=== PATIENT | female | born 1930 | race Caucasian/White ===

== ENCOUNTER 2017-12-28 15:12 | Emergency (ER) | payer MEDICARE, BC ==
--- NOTE | 2017-12-28 16:13 | EDM.PDOC ---
ED HPI GENERAL MEDICAL PROBLEM - General Time Seen by Provider: 12/28/17 15:45 Source of Information: Reports: Patient History Limitations: Reports: No Limitations - History of Present Illness INITIAL COMMENTS - FREE TEXT/NARRATIVE: According to patient she claims she woke today morning and had precardial chest pain. Pain was dull and was throbbing type. Lasted for about 1 hr before it resolved. No shortness of breath, sweating. nausea or vomiting. Presently she does not have chest pain, but has been feeling tired and exhausted all day. Pt also claims that she does feel like she has been missing beat in her heart. no thumping sensation in the heart. no back pain or epigastric pain. No other complaints. Onset: Today Onset Date: 12/28/17 Onset Time: 06:00 Location: Reports: Chest Quality: Reports: Ache Severity: Mild Improves with: Reports: None Worsens with: Reports: None Associated Symptoms: Reports: Chest Pain, Weakness. Denies: Confusion, Cough, Diaphoresis, Fever/Chills, Headaches, Nausea/Vomiting, Rash, Seizure, Shortness of Breath, Syncope - Related Data Allergies Allergy/AdvReac Type Severity Reaction Status Date / Time No Known Allergies Allergy Verified 04/17/14 13:04 Home Meds: Home Meds Hydrochlorothiazide 25 mg PO DAILY 04/15/14 [History] Aspirin 81 mg DAILY 12/28/17 [History] Levothyroxine Sodium [Levo-T] 75 mcg PO DAILY 12/28/17 [History] Past Medical History HEENT History: Reports: Hard of Hearing, Impaired Vision Cardiovascular History: Reports: Hypertension Respiratory History: Reports: None Gastrointestinal History: Reports: Chronic Constipation, GERD Genitourinary History: Reports: None 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 OILER History: Reports: Fibroids, , Other (See Below) Other SHOVEL OILER History: fibroids removed Musculoskeletal History: Reports: None, Back Pain, Chronic Neurological History: Reports: Vertigo, Other (See Below) Other Neuro History: some headaches Psychiatric History: Reports: None Endocrine/Metabolic History: Reports: Hypothyroidism Hematologic History: Reports: None Immunologic History: Reports: None Oncologic (Cancer) History: Reports: None Dermatologic History: Reports: None - Past Surgical History HEENT Surgical History: Reports: Cataract Surgery, Tonsillectomy ED ROS GENERAL - Review of Systems Review Of Systems: See Below Constitutional: Reports: Weakness, Fatigue. Denies: Fever, Chills, Night Sweats , Diaphoresis HEENT: Denies: Rhinitis, Throat Pain, Throat Swelling, Vision Change Respiratory: Denies: Shortness of Breath, Wheezing, Cough, Sputum Cardiovascular: Reports: Chest Pain. Denies: Lightheadedness Endocrine: Reports: Fatigue GI/Abdominal: Denies: Abdominal Pain, Constipation, Diarrhea, Distension, Nausea , Vomiting : Denies: Dysuria, Flank Pain Musculoskeletal: Denies: Joint Pain, Joint Swelling Skin: Denies: Jaundice, Pruritis, Rash Neurological: Denies: Confusion, Dizziness, Headache, Numbness Psychiatric: Denies: Agitation, Anxiety, Confusion, Cravings ED EXAM, GENERAL - Physical Exam Exam: See Below Exam Limited By: No Limitations General Appearance: Alert, WD/WN, No Apparent Distress Eye Exam: Bilateral Eye: EOMI, PERRL Ears: Normal External Exam, Normal Canal, Hearing Grossly Normal, Normal TMs Ear Exam: Bilateral Ear: Auricle Normal, Canal Normal, TM normal Nose: Normal Inspection, Normal Mucosa, No Blood Throat/Mouth: Normal Inspection, Normal Lips, Normal Teeth, Normal Gums, Normal Oropharynx, Normal Voice, No Airway Compromise Head: Atraumatic, Normocephalic Neck: Normal Inspection, Supple, Non-Tender, Full Range of Motion Respiratory/Chest: No Respiratory Distress, Lungs Clear, Normal Breath Sounds, No Accessory Muscle Use, Chest Non-Tender Cardiovascular: Normal Peripheral Pulses, Regular Rate, Rhythm, No Edema, No Gallop, No JVD, No Murmur, No Rub GI/Abdominal: Normal Bowel Sounds, Soft, Non-Tender, No Organomegaly, No Distention, No Abnormal Bruit, No Mass Back Exam: Normal Inspection, Full Range of Motion, NT Extremities: Normal Inspection, Normal Range of Motion, Non-Tender, Normal Capillary Refill, No Pedal Edema Neurological: Alert, Oriented, CN II-XII Intact, Normal Cognition, Normal Gait, Normal Reflexes, No Motor/Sensory Deficits Psychiatric: Normal Affect, Normal Mood Skin Exam: Warm, Intact EKG INTERPRETATION EKG Date: 12/28/17 Rhythm: NSR Rate (Beats/Min): 74 [place]: LAD-Left [place] Deviation P-Wave: Present QRS: LBBB ST-T: Normal QT: Normal EKG Interpretation Comments: New onset LBBB comparison made with her previous EKG from 04/09/18 Course - Vital Signs Text/Narrative:: Pt is a 87 year female with chest pain about 8 hrs ago with fatigue. Presently is is pain free. No pain with exertion or activity. Her EKG shows new onset LBBB. Will get cardiac workup. Pt's CBC is normal. Her CMP shows mild hypokalemia with potassium of 3.1. UA is negative. Troponin is within normal limits.TSH is normal. I did contact [facility] as she has LBBB on EKG which was not seen on her previous EKG form 04/09/14. Discussed patient with Dr. Osorio, contact center specialist on erick. As pt is asymptomatic,with negative troponins , he did reassured that LBBB might be age related nonspecific change. HE did recommend Cardiology outpatient followup. Pt was notified. Will schedule cardiology appointment at [facility]. Also I have advised to eat 1 banana daily for next 10 days to replenish potassium. repeat potassium in 2 wks. Followup with primary care provider in 2 wks. Last Recorded V/S: Last Vital Signs Temp 99 F 12/28/17 16:21 Pulse 76 12/28/17 16:21 Resp 16 12/28/17 16:21 BP 146/68 H 12/28/17 16:21 Pulse Ox 95 12/28/17 16:21 - Orders/Labs/Meds Orders: Active Orders 24 hr Category Date Time Status EKG Documentation Completion [RC] ASDIRECTED Care 12/28/17 16:04 Ordered Chest 1V Frontal [CR] Stat Exams 12/28/17 16:15 Taken Labs: Laboratory Tests 12/28/17 12/28/17 12/28/17 Range/Units 16:20 16:20 16:20 WBC 4.4 (4.0-11.0) K/uL RBC 4.48 (3.80-5.80) M/uL Hgb 13.8 (11.5-16.5) g/dL Hct 40.9 (37.0-47.0) % MCV 91 (76-96) fL MCH 30.8 (27.0-32.0) pg MCHC 33.7 (31.0-35.0) g/dL RDW 14.8 (11.0-16.0) % Plt Count 220 (150-500) K/uL MPV 9.2 (6.0-10.0) fL Neut % (Auto) 43.2 L (45.0-70.0) % Lymph % (Auto) 37.4 (20.0-40.0) % [place] % (Auto) 13.5 H (3.0-10.0) % Eos % (Auto) 5.0 (1.0-5.0) % Baso % (Auto) 0.9 H (0.0-0.5) % Neut # (Auto) 1.88 L (2.00-7.50) K/uL Lymph # (Auto) 1.63 (1.50-4.00) K/uL [place] # (Auto) 0.59 (0.20-0.80) K/uL Eos # (Auto) 0.22 (0.04-0.40) K/uL Baso # (Auto) 0.04 (0.02-0.10) K/uL Sodium 143 (136-145) mmol/L Potassium 3.1 L (3.5-5.1) mmol/L Chloride 107 (98-107) mmol/L Carbon Dioxide 28.7 (21.0-32.0) mmol/L Anion Gap 10.4 (5.0-15.0) mmol/L BUN 22 D (8-26) mg/dL Creatinine 0.78 (0.55-1.02) mg/dL Est Cr Clr Drug Dosing 39.43 mL/min Estimated GFR (MDRD) > 60 (>60) MLS/MIN BUN/Creatinine Ratio 28.2 H (6-25) Glucose 80 (74-100) mg/dL Calcium 9.5 (8.5-10.1) mg/dL Total Bilirubin 0.7 D (0.0-1.0) mg/dL AST 25 (15-37) U/L ALT 24 (12-78) U/L Alkaline Phosphatase 65 (46-116) U/L Troponin I 0.029 D (0.000-0.060) ng/mL Total Protein 7.3 (6.4-8.2) g/dL Albumin 3.0 L (3.4-5.0) g/dL Globulin 4.3 H (2.2-4.2) g/dL Albumin/Globulin Ratio 0.7 L (0.8-2.0) TSH, Ultra Sensitive 0.683 D (0.358-3.740) uIU/mL Urine Color Urine Appearance (CLEAR) Urine pH (5.0-8.0) Ur Specific [place] (1.003-1.030) Urine Protein (NEGATIVE) mg/dL Urine Glucose (UA) (NEGATIVE) mg/dL Urine Ketones (NEGATIVE) mg/dL Urine Occult Blood (NEGATIVE) Urine Nitrite (NEGATIVE) Urine Bilirubin (NEGATIVE) Urine Urobilinogen (0.2-1.0) E.U./dL Ur Leukocyte Esterase (NEGATIVE) Urine RBC /HPF Urine WBC /HPF Ur Squamous Epith Cells /HPF Urine Bacteria /HPF 12/28/17 Range/Units 16:20 WBC (4.0-11.0) K/uL RBC (3.80-5.80) M/uL Hgb (11.5-16.5) g/dL Hct (37.0-47.0) % MCV (76-96) fL MCH (27.0-32.0) pg MCHC (31.0-35.0) g/dL RDW (11.0-16.0) % Plt Count (150-500) K/uL MPV (6.0-10.0) fL Neut % (Auto) (45.0-70.0) % Lymph % (Auto) (20.0-40.0) % [place] % (Auto) (3.0-10.0) % Eos % (Auto) (1.0-5.0) % Baso % (Auto) (0.0-0.5) % Neut # (Auto) (2.00-7.50) K/uL Lymph # (Auto) (1.50-4.00) K/uL [place] # (Auto) (0.20-0.80) K/uL Eos # (Auto) (0.04-0.40) K/uL Baso # (Auto) (0.02-0.10) K/uL Sodium (136-145) mmol/L Potassium (3.5-5.1) mmol/L Chloride (98-107) mmol/L Carbon Dioxide (21.0-32.0) mmol/L Anion Gap (5.0-15.0) mmol/L BUN (8-26) mg/dL Creatinine (0.55-1.02) mg/dL Est Cr Clr Drug Dosing mL/min Estimated GFR (MDRD) (>60) MLS/MIN BUN/Creatinine Ratio (6-25) Glucose (74-100) mg/dL Calcium (8.5-10.1) mg/dL Total Bilirubin (0.0-1.0) mg/dL AST (15-37) U/L ALT (12-78) U/L Alkaline Phosphatase (46-116) U/L Troponin I (0.000-0.060) ng/mL Total Protein (6.4-8.2) g/dL Albumin (3.4-5.0) g/dL Globulin (2.2-4.2) g/dL Albumin/Globulin Ratio (0.8-2.0) TSH, Ultra Sensitive (0.358-3.740) uIU/mL Urine Color Yellow Urine Appearance Clear (CLEAR) Urine pH 7.0 (5.0-8.0) Ur Specific [place] 1.010 (1.003-1.030) Urine Protein Negative (NEGATIVE) mg/dL Urine Glucose (UA) Negative (NEGATIVE) mg/dL Urine Ketones Negative (NEGATIVE) mg/dL Urine Occult Blood Negative (NEGATIVE) Urine Nitrite Negative (NEGATIVE) Urine Bilirubin Negative (NEGATIVE) Urine Urobilinogen 0.2 (0.2-1.0) E.U./dL Ur Leukocyte Esterase Negative (NEGATIVE) Urine RBC Not seen /HPF Urine WBC Not seen /HPF Ur Squamous Epith Cells Rare /HPF Urine Bacteria Rare /HPF Departure - Departure Time of Disposition: 17:20 Disposition: Home, Self-Care 01 Condition: Fair Clinical Impression: Fatigue, Hypokalemia, Chest pain - Discharge Information Referrals: PCP,None [Primary Care Provider] - Additional Instructions: I did contact [facility] as she has LBBB on EKG which was not seen on her previous EKG form 04/09/14. Discussed patient with Dr. Osorio, contact center specialist on erick. As pt is asymptomatic,with negative troponins , he did reassured that LBBB might be age related nonspecific change. HE did recommend Cardiology outpatient followup. Pt was notified. Will schedule cardiology appointment at [facility]. Also I have advised to eat 1 banana daily for next 10 days to replenish potassium. repeat potassium in 2 wks. Followup with primary care provider in 2 wks. - Problem List & Annotations (1) Chest pain SNOMED Code(s): 97497229 Code(s): R07.9 - CHEST PAIN, UNSPECIFIED Status: Acute Current Visit: Yes (2) Fatigue SNOMED Code(s): 25746197 Code(s): R53.83 - OTHER FATIGUE Status: Acute Current Visit: Yes (3) Hypokalemia SNOMED Code(s): 09104398 Code(s): E87.6 - HYPOKALEMIA Status: Acute Current Visit: Yes - Problem List Review Problem List Initiated/Reviewed/Updated: Yes - My Orders Last 24 Hours: My Active Orders 12/28/17 16:04 EKG Documentation Completion [RC] ASDIRECTED 12/28/17 16:15 Chest 1V Frontal [CR] Stat - Assessment/Plan Last 24 Hours: My Active Orders 12/28/17 16:04 EKG Documentation Completion [RC] ASDIRECTED 12/28/17 16:15 Chest 1V Frontal [CR] Stat Assessment:: Chest pain- Negative troponin LBBB Fatigue Mild hypokalemia Plan: I did contact [facility] as she has LBBB on EKG which was not seen on her previous EKG form 04/09/14. Discussed patient with Dr. Osorio, contact center specialist on erick. As pt is asymptomatic,with negative troponins , he did reassured that LBBB might be age related nonspecific change. HE did recommend Cardiology outpatient followup. Pt was notified. Will schedule cardiology appointment at [facility]. Also I have advised to eat 1 banana daily for next 10 days to replenish potassium. repeat potassium in 2 wks. Followup with primary care provider in 2 wks.
[2017-12-28 16:24] VITALS: BP 146/68
[2017-12-28] MEDS ORDERED: Sodium Chloride 0.9% 10 ML Syringe FLUSH PRN (18:09)
--- NOTE | 2017-12-29 08:44 | CR ---
AP PORTABLE CHEST, 12/28/17 Comparison made to a prior exam dated 07/18/08. The heart size is normal. The aorta is calcified and ectatic. The lungs are clear. No pneumothorax. No pleural effusions. No evidence of acute intrathoracic disease. [id number] [facility]
== END 2017-12-28 17:20 | disposition home or self-care (01) ==
LOC: LB.ED 15:12
DX: E87.6 Hypokalemia (principal); R07.9 Chest pain, unspecified; R53.83 Other fatigue; I10 Essential (primary) hypertension; Z79.899 Other long term (current) drug therapy; Z79.82 Long term (current) use of aspirin
CPT/HCPCS: 36415; 71045; 80053; 81001; 84443; 84484; 85025; 93005; 99285-25

== ENCOUNTER 2019-01-27 14:25 | Emergency (ER) | payer MEDICARE, BC ==
--- NOTE | 2019-01-27 15:41 | EDM.PDOC ---
ED HPI GENERAL MEDICAL PROBLEM - General Chief Complaint: General Stated Complaint: palpitations Time Seen by Provider: 01/27/19 14:30 Source of Information: Reports: Patient, Family History Limitations: Reports: No Limitations - History of Present Illness INITIAL COMMENTS - FREE TEXT/NARRATIVE: This is a 88yo F here for chest pain and discomfort for a while. She felt some palpitations at the time with her heart racing like it was going to explode. She denies current symptoms but does have some chest discomfort at this time. She denies any fever or chills, no shortness of breath or headache. She denies any weakness but has some generalized weakness all the time. Onset: Sudden Duration: Hour(s):, Resolved Prior to Arrival Location: Reports: Chest Quality: Reports: Ache Severity: Moderate Improves with: Reports: None Worsens with: Reports: None Associated Symptoms: Reports: No Other Symptoms - Related Data Allergies Allergy/AdvReac Type Severity Reaction Status Date / Time No Known Allergies Allergy Verified 01/27/19 14:55 Home Meds: Home Meds Hydrochlorothiazide 25 mg PO DAILY 04/15/14 [History] Levothyroxine Sodium [Levo-T] 75 mcg PO DAILY 12/28/17 [History] Past Medical History HEENT History: Reports: Hard of Hearing, Impaired Vision Cardiovascular History: Reports: Hypertension Respiratory History: Reports: None Gastrointestinal History: Reports: Chronic Constipation, GERD Genitourinary History: Reports: None 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: 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, , Other (See Below) 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: fibroids removed Musculoskeletal History: Reports: Back Pain, Chronic Neurological History: Reports: Vertigo, Other (See Below) Other Neuro History: some headaches Psychiatric History: Reports: None Endocrine/Metabolic History: Reports: Hypothyroidism Hematologic History: Reports: None Immunologic History: Reports: None Oncologic (Cancer) History: Reports: None Dermatologic History: Reports: None - Infectious Disease History Infectious Disease History: Reports: Chicken Pox Other Infectious Disease History: Patient doesn't know, thinks she may have had measles - Past Surgical History HEENT Surgical History: Reports: Cataract Surgery, Tonsillectomy Social & Family History - Family History Family Medical History: Noncontributory - Tobacco Use Smoking Status *Q: Never Smoker Second Hand Smoke Exposure: No - Caffeine Use Caffeine Use: Reports: Coffee - Recreational Drug Use Recreational Drug Use: No ED ROS GENERAL - Review of Systems Review Of Systems: See Below Constitutional: Reports: No Symptoms HEENT: Reports: No Symptoms Respiratory: Reports: No Symptoms Cardiovascular: Reports: Chest Pain Endocrine: Reports: No Symptoms GI/Abdominal: Reports: No Symptoms : Reports: No Symptoms Musculoskeletal: Reports: No Symptoms Skin: Reports: No Symptoms ED EXAM, GENERAL - Physical Exam Exam: See Below Exam Limited By: No Limitations General Appearance: Alert, WD/WN, No Apparent Distress Eye Exam: Bilateral Eye: EOMI, PERRL Ears: Normal External Exam Ear Exam: Bilateral Ear: TM normal Nose: Normal Inspection Throat/Mouth: Normal Inspection, Normal Lips Head: Atraumatic, Normocephalic Neck: Normal Inspection Respiratory/Chest: No Respiratory Distress, Lungs Clear Cardiovascular: Normal Peripheral Pulses, Regular Rate, Rhythm Peripheral Pulses: 2+: Dorsalis Pedis (L), Dorsalis Pedis (R) GI/Abdominal: Normal Bowel Sounds Back Exam: Normal Inspection Extremities: Normal Inspection Course - Vital Signs Last Recorded V/S: Last Vital Signs Temp 36.8 C 01/27/19 16:36 Pulse 73 01/27/19 16:36 Resp 18 01/27/19 16:36 BP 116/74 01/27/19 16:36 Pulse Ox 99 01/27/19 16:36 - Orders/Labs/Meds Labs: Laboratory Tests 01/27/19 01/27/19 Range/Units 14:52 14:52 WBC 5.2 (4.0-11.0) K/uL RBC 4.43 (3.80-5.80) M/uL Hgb 13.5 (11.5-16.5) g/dL Hct 40.5 (37.0-47.0) % MCV 91 (76-96) fL MCH 30.5 (27.0-32.0) pg MCHC 33.3 (31.0-35.0) g/dL RDW 15.2 (11.0-16.0) % Plt Count 219 (150-500) K/uL MPV 9.1 (6.0-10.0) fL Neut % (Auto) 55.4 (45.0-70.0) % Lymph % (Auto) 31.7 (20.0-40.0) % [place] % (Auto) 10.8 H (3.0-10.0) % Eos % (Auto) 1.7 (1.0-5.0) % Baso % (Auto) 0.4 (0.0-0.5) % Neut # (Auto) 2.86 (2.00-7.50) K/uL Lymph # (Auto) 1.64 (1.50-4.00) K/uL [place] # (Auto) 0.56 (0.20-0.80) K/uL Eos # (Auto) 0.09 (0.04-0.40) K/uL Baso # (Auto) 0.02 (0.02-0.10) K/uL Sodium 145 (136-145) mmol/L Potassium 3.4 L (3.5-5.1) mmol/L Chloride 107 (98-107) mmol/L Carbon Dioxide 26.7 (21.0-32.0) mmol/L Anion Gap 14.7 (5.0-15.0) mmol/L BUN 22 D (8-26) mg/dL Creatinine 0.90 (0.55-1.02) mg/dL Est Cr Clr Drug Dosing 33.52 mL/min Estimated GFR (MDRD) 59 L (>60) MLS/MIN BUN/Creatinine Ratio 24.4 (6-25) Glucose 100 (74-100) mg/dL Calcium 9.2 (8.5-10.1) mg/dL Troponin I 0.086 H* D (0.000-0.060) ng/mL TSH, Ultra Sensitive 1.165 D (0.358-3.740) uIU/mL Meds: Medications Discontinued Medications Generic Name Dose Route Start Last Admin Trade Name Shaniqua PRN Reason Stop Dose Admin Aspirin 324 mg 01/27/19 16:38 01/27/19 15:57 Aspirin PO 01/27/19 16:39 324 mg ONETIME ONE Administration Departure - Departure Time of Disposition: 18:00 Disposition: DC/Tfer to Acute Hospital 02 Condition: Good Clinical Impression: Elevated troponin Chest pain Qualifiers: Chest pain type: unspecified Qualified Code(s): R07.9 - Chest pain, unspecified - Discharge Information Instructions: Cardiac-Specific Troponin I and T Test Referrals: PCP,None [Primary Care Provider] - Forms: ED Department Discharge Additional Instructions: Discharge with family and go straight to [facility] in [place]. - Problem List & Annotations (1) Chest pain SNOMED Code(s): 56179080 Code(s): R07.9 - CHEST PAIN, UNSPECIFIED Status: Acute Priority: High Qualifiers: Chest pain type: unspecified Qualified Code(s): R07.9 - Chest pain, unspecified (2) Elevated troponin SNOMED Code(s): 141222014, [id number], 469615290 Code(s): R74.8 - ABNORMAL LEVELS OF OTHER SERUM ENZYMES Status: Acute Priority: High - Problem List Review Problem List Initiated/Reviewed/Updated: Yes - Assessment/Plan Plan: Patient to be transferred to [facility] for monitoring and ACS workup. Patient and family agreeable with plan of care and management. Consulted with Hospitalist and patient to be admitted to telemetry.
[2019-01-27 16:37] VITALS: BP 116/74; PULSE 73
[2019-01-27] MEDS ORDERED: Aspirin 81 MG Tab.Chew PO ONE (16:38)
== END 2019-01-27 17:11 ==
LOC: LB.ED 14:25
DX: R07.9 Chest pain, unspecified (principal); R74.8 Abnormal levels of other serum enzymes; Z98.890 Other specified postprocedural states; I10 Essential (primary) hypertension
CPT/HCPCS: 36415; 80048; 84443; 84484; 85025; 93005; 99285-25; A9270-GY